=== PATIENT | male | born 1950 | race Caucasian/White ===

== ENCOUNTER → 2017-08-08 15:32 | Outpatient (CLI) | payer OTHER, SELFPAY ==
[2017-08-08 16:49] LABS: PSA,Total- Diagnostic 6.72 ng/mL (0.0-4.0)
== END ==
PROVIDERS: Visit Provider Nurse Practitioner Adult Health
DX: R97.20 Elevated prostate specific antigen [PSA] (principal)
CPT/HCPCS: 36415; 84153

== ENCOUNTER → 2017-08-08 17:59 | Outpatient (CLI) | payer OTHER, SELFPAY | PROVIDERS: Visit Provider Nurse Practitioner Adult Health | DX: R30.0 Dysuria (principal); R33.9 Retention of urine, unspecified; R35.0 Frequency of micturition | CPT/HCPCS: 87077; 87086; 87088 ==

== ENCOUNTER → 2017-11-08 16:42 | Outpatient (CLI) | payer BC, OTHER, SELFPAY ==
[2017-11-08 18:14] LABS: PSA,Total- Diagnostic 3.84 ng/mL (0.0-4.0)
== END ==
PROVIDERS: Referring Provider Nurse Practitioner Adult Health; Visit Provider Nurse Practitioner Adult Health
DX: R97.20 Elevated prostate specific antigen [PSA] (principal)
CPT/HCPCS: 36415; 84153

== ENCOUNTER → 2018-08-22 | Outpatient (CLI) | payer BC, OTHER, SELFPAY ==
[2018-08-22 14:28] LABS: PSA,Total- Diagnostic 4.32 ng/mL (0.0-4.0)
== END | disposition home or self-care (01) ==
LOC: LAB.FUTURE 12:03
PROVIDERS: Referring Provider Urology; Visit Provider Urology
DX: R97.20 Elevated prostate specific antigen [PSA] (principal)
CPT/HCPCS: 36415; 84153